=== PATIENT | male | born 1965 | race African-American/Black ===

== ENCOUNTER 2021-02-14 20:40 | Emergency (ER) | payer OTHER ==
[~2021-02-14] VITALS: Ht 175.3 cm; Wt 106.6 kg
[2021-02-14 21:18] VITALS: BP 159/94
[2021-02-14] MEDS ORDERED: TORADOL IM STA (21:25)
--- NOTE | 2021-02-14 21:34 | ER.PDOC ---
General Chief Complaint: Extremities Stated Complaint: L HIP PAIN Time seen by MD: 21:33 Source: patient Exam Limitations: no limitations History of Present Illness Initial Comments Left hip pain for 1 month. Patient denies injury. Quality: moderate Method of Injury/Prior Injury: unknown Location: hip (L) Symptoms prior to fall: denies symptoms Other Injuries: none Allergies: Coded Allergies: No Known Allergies (Unverified , 02/14/21) Past Medical History Medical History: GERD, hypertension Surgical History: knee Family History Significant Family History: no pertinent family hx Social History Smoking: non-smoker Alcohol Use: occassionally Drug Use: none Review of Systems Constitutional: no symptoms reported EENTM: no symptoms reported Respiratory: no symptoms reported Cardiovascular: no symptoms reported Gastrointestinal: no symptoms reported Musculoskeletal: see HPI All Other Systems: Reviewed and Negative Physical Exam General Appearance: No Apparent Distress, WD/WN Extremities: no obvious injury, no pedal edema, nml ROM, nml tendon exam, hip pain on movement (left) Neck: nml inspection, non-tender Cardiovascular/Respiratory: Regular Rate, Rhythm, No M/R/G, Normal Peripheral Pulses, No JVD, Normal Breath Sounds, No Respiratory Distress Abdominal: Non-Tender, No Organomegaly, No Hernia Back: Normal Inspection, No CVA Tenderness Extremities: Pain With Movement (left hip), Tenderness Neuro/Psych: Alert, heating and cooling technician nml/symmetrical, mood/effect nml, No Motor/Sensory Deficits, Relexes nml Skin: Normal Color, Warm/Dry Results/Orders Results/Orders Orders - ERIK FLOREZ MD Xr Hip Lt 2v W/Pelvis (02/14/21 21:25) Ketorolac Tromethamine (Toradol) (02/14/21 21:25) Ketorolac Tromethamine (Toradol) (02/14/21 21:37) Vital Signs Date Time Temp Pulse Resp B/P (MAP) Pulse Ox O2 Delivery O2 Flow Rate FiO2 02/14/21 21:18 98.1 54 16 159/94 (115) 98 Room Air 02/14/21 21:18 98.1 54 16 02/14/21 21:18 98.1 54 16 98 Administered Medications Medications (Trade) Dose Ordered Sig/Jamila Route PRN Reason Start Time Stop Time Status Last Admin Dose Admin Ketorolac Tromethamine (Toradol) 60 mg STAT STAT IM 02/14/21 21:25 02/14/21 21:27 DC 02/14/21 21:45 60 MG Progress Progress No acute abnormality of left hip. Patient is feeling better with the Toradol shot. ER DEPARTURE Departure Time of Disposition: 22:22 Disposition: 01 HOME / SELF CARE / HOMELESS Impression: Primary Impression: Hip pain, left Condition: Improved Referrals: PCP,UNKNOWN (PCP) PRIMARY CARE PROVIDER Additional Instructions: Tramadol Medrol Dosepak Flexeril Follow-up with your PCP in 1 week Return to ED if worsening pain or concerns Duration or Time Spent with Pa: 20 min Justification of Admit/Observ Is this patient coming directl: Yes *Level of Care/Services Provid: ER Admit Criteria Met: NO Justification Content JUSTIFICATION FOR ADMISSION Instructions 1. Open link in [employer] Browser. [email or web address] 2. Copy and paste data needed to meet the Admit Criteria. 3. Modify and document the needful data to meet the Admit Criteria. ERIK FLOREZ MD Feb 14, 2021 21:34
[2021-02-14] MEDS ORDERED: TORADOL ONE (21:37)
--- NOTE | 2021-02-14 22:16 | DIREP ---
PROCEDURE:XRAY HIP MIN 2VW-LT COMPARISON:None. INDICATIONS:pain FINDINGS: BONES:No acute fracture. JOINTS:Mild degenerative changes of the hips bilaterally. SOFT TISSUES:No suspicious abnormality OTHER:No additional findings. CONCLUSION: 1. No acute osseous abnormality. 2. Mild degenerative changes of the hips. Dictated by: Garrick Mcmanus M.D. On 02/14/2021 at 10:13 PM
[2021-02-14 22:20] VITALS: BP 158/85
== END 2021-02-14 22:31 | disposition home or self-care (01) ==
LOC: ER 20:40
DX: M25.552 Pain in left hip (principal); I10 Essential (primary) hypertension; K21.9 Gastro-esophageal reflux disease without esophagitis; Z79.1 Long term (current) use of non-steroidal anti-inflammatories (NSAID)
CPT/HCPCS: 73502; 96372; 99283; J1885